=== PATIENT | female | born 1965 | race Hispanic/Latino ===

== ENCOUNTER 2018-08-19 10:49 | Emergency (ER) | payer BC ==
[~2018-08-19] VITALS: Ht 160 cm; Wt 150.0 kg
[~2018-08-19 10:49] MED LIST: ALAVERT10 MG OR; ALBUTEROL0.083 % IN; AMOXICILLIN/CL875 MG PO; AMOXIL500 MG OR; CHERATUSSIN PO; CLARITIN10 M1 PO; COLACE100 MG PO; FLONASE NASAL50 MCG; HYDROCHLOROT12.5 MG PO; IBUPROFEN600 MG PO; LISINOPRIL10 MG OR; METFORMIN500 M2 PO; MYLANT OR; OMNICEF300 MG PO; PRAVASTATIN10 MG PO; TOBRAMYCIN0.3 % OU; TYLOPHEN500 MG PO
[2018-08-19] MEDS ORDERED: LOSARTAN POT25 MG PO (11:07)
[2018-08-19] MEDS ORDERED: MELOXICAM7.5 MG PO (11:08)
[2018-08-19] MEDS ORDERED: VITAMIN D2400 UNIT PO (11:08)
[2018-08-19] MEDS ORDERED: FISH OIL1000 MG PO (11:09)
[2018-08-19] MEDS ORDERED: OXYBUTYNIN5 M1 PO (11:09)
[2018-08-19] MEDS ORDERED: LIDOCAINE/PRILOCAINE TOP (11:11)
[2018-08-19] MEDS ORDERED: HYZAAR1 TA1 PO (11:33)
[2018-08-19] MEDS ORDERED: VITAMIN D50000 UNIT PO (11:34)
[2018-08-19] MEDS ORDERED: DITROPAN PO (11:35)
[2018-08-19] MEDS ORDERED: MELOXICAM15 MG PO (11:35)
[2018-08-19] MEDS ORDERED: LIDO/PRILOCN1 CRE EX (11:36)
[2018-08-19] MEDS ORDERED: METFORMIN500 M2 PO (11:36)
[2018-08-19 11:48] VITALS: BP 150/72
== END 2018-08-19 11:48 | disposition home or self-care (01) | DRG 556 ==
LOC: ED 10:49
DX: M25.562 Pain in left knee (principal); E11.9 Type 2 diabetes mellitus without complications; I10 Essential (primary) hypertension; M19.90 Unspecified osteoarthritis, unspecified site